=== PATIENT | male | born 1985 | race African-American/Black ===

== ENCOUNTER 2016-09-03 21:54 | Emergency (ER) | payer SELFPAY ==
[~2016-09-03] VITALS: Ht 175.3 cm; Wt 86.7 kg
[~2016-09-03 21:54] MED LIST: ATARAX,VISTARIL25 MG PO; AUGMENTIN875 MG PO; CORTIZONE-10 PL57 GM TP; ZANTAC150 MG PO
[2016-09-03 22:17] VITALS: BP 116/74
== END 2016-09-03 23:50 | disposition home or self-care (01) ==
LOC: EXP 21:54 → EME 21:54 → EXP 23:50
PROC: 0HCQXZZ Extirpation of Matter from Finger Nail, External Approach (ICD-10-PCS; principal; 2016-09-03)
DX: S60.453A Superficial foreign body of left middle finger, initial encounter (principal); W45.8XXA Other foreign body or object entering through skin, initial encounter; Y93.G1 Activity, food preparation and clean up; F17.200 Nicotine dependence, unspecified, uncomplicated
CPT/HCPCS: 99281; 99284

== ENCOUNTER 2017-03-23 11:24 | Emergency (ER) | payer SELFPAY ==
[~2017-03-23] VITALS: Ht 175.3 cm; Wt 88.5 kg
[2017-03-23 13:38] VITALS: BP 132/80
== END 2017-03-23 13:38 | disposition home or self-care (01) ==
LOC: EME 11:24
DX: B00.1 Herpesviral vesicular dermatitis (principal); F17.200 Nicotine dependence, unspecified, uncomplicated

== ENCOUNTER 2017-04-09 22:40 | Emergency (ER) | payer SELFPAY ==
[~2017-04-09] VITALS: Ht 175.3 cm; Wt 83.5 kg
[2017-04-10] MEDS ORDERED: ZITHROMAX Z-PA250 MG PO (01:54)
[2017-04-10] MEDS ORDERED: VENTOLIN HFA18 GM IH (01:54)
[2017-04-10] MEDS ORDERED: MEDROL DOSEPAK4 MG PO (01:54)
[2017-04-10 02:17] VITALS: BP 131/75
== END 2017-04-10 02:28 | disposition home or self-care (01) ==
LOC: EME 22:40
DX: J10.08 Influenza due to other identified influenza virus with other specified pneumonia (principal); J18.1 Lobar pneumonia, unspecified organism; J98.01 Acute bronchospasm; F17.200 Nicotine dependence, unspecified, uncomplicated
CPT/HCPCS: 71046; 87502; 94640; 99281; 99283; J7512